=== PATIENT | male | born 1995 | race African-American/Black ===

== ENCOUNTER 2017-06-04 19:53 | Emergency (ER) | payer BC | END 2017-06-04 21:42 | disposition home or self-care (01) | LOC: ER 19:53 | DX: S01.311A Laceration without foreign body of right ear, initial encounter (principal); S09.90XA Unspecified injury of head, initial encounter; F10.99 Alcohol use, unspecified with unspecified alcohol-induced disorder; W26.8XXA Contact with other sharp object(s), not elsewhere classified, initial encounter; Y93.89 Activity, other specified; Y92.89 Other specified places as the place of occurrence of the external cause; Y99.8 Other external cause status ==